=== PATIENT | male | born 1995 | race Caucasian/White ===

== ENCOUNTER 2017-02-21 21:37 | Emergency (ER) | payer OTHER ==
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
[2017-02-21 22:03] VITALS: BP 121/83
== END 2017-02-21 22:14 | disposition home or self-care (01) ==
LOC: UCCORT 21:37
DX: S00.83XA Contusion of other part of head, initial encounter (principal); W50.0XXA Accidental hit or strike by another person, initial encounter; Y93.89 Activity, other specified; Y92.159 Unspecified place in reform school as the place of occurrence of the external cause; Y99.0 Civilian activity done for income or pay
CPT/HCPCS: 99211; G0463